=== PATIENT | female | born 1985 | race Caucasian/White ===

== ENCOUNTER 2019-03-07 16:40 | Inpatient (IN) ==
[2019-03-07] MEDS ORDERED: CALCIUM GLUCONATE 1,000 MG in SODIUM CHLORIDE 0.9% 100 ML IV PRN (17:22)
[2019-03-07 17:45] LABS: Basophils % 0.2 % (0.0-0.8); Eosinophils # 0.1 10*3/uL (0.0-0.87); Hematocrit 30.6 VOL% (35.7-47.0); Hemoglobin 10.2 GM/DL (12.0-16.0); Immature Granulocytes % 0.9 %; Immature Granulocytes Absolute 0.11 #; Lymphocytes # 2.3 10*3/uL (1.4-4.0); Lymphocytes % 18.3 % (21.3-54.2); Mean Corpuscular HGB Conc 33.3 GM/DL (32-36); Mean Corpuscular Volume 85.7 FL (87-102); Mean Platelet Volume 11.2 FL (9.6-12.0); Neutrophils % 73.6 % (38.7-73.9); Platelet Count 193 T/CUMM (130-400); Red Blood Count 3.57 MC/CUMM (3.8-5.5); Red Cell Distribution Width 14.9 % (9.3-17.3); White Blood Count 12.6 T/CUMM (4-12)
[2019-03-07] MEDS ORDERED: MAGNESIUM SULF RIDER 100 ML IV ONE (17:56)
[2019-03-07 18:06] LABS: Albumin 2.5 G/DL (3.4-5.0); Bilirubin,Total 0.4 MG/DL (0.2-1.0); Calcium 8.8 MG/DL (8.5-10.1); Osmolality,Calculated 275.5 MOS/KG (273-304); Total Protein 6.7 G/DL (6.4-8.3)
[2019-03-07] MEDS: LACTATED RINGERS 1,000 ML IV SCH (18:25)
[2019-03-07] MEDS: BETAMETH SODIUM PHOS/ACETATE 30 MG/5 ML VIAL IM SCH (18:30)
[2019-03-07] MEDS: AMPICILLIN INJ 2,000 MG in SODIUM CHLORIDE 0.9% 100 ML IV SCH (18:30)
[2019-03-07] MEDS: MAGNESIUM SULF DRIP 40 GM/1,000 ML ML IV SCH (18:47)
[2019-03-08] MEDS: AMPICILLIN INJ 2,000 MG in SODIUM CHLORIDE 0.9% 100 ML IV SCH ×4 (00:03→18:58)
[2019-03-08 06:14] LABS: Basophils # 0.1 10*3/uL (0.0-0.2); Basophils % 0.3 % (0.0-0.8); Eosinophils % 0.1 % (0.00-10.9); Hematocrit 34.3 VOL% (35.7-47.0); Hemoglobin 11.3 GM/DL (12.0-16.0); Immature Granulocytes % 1.2 %; Immature Granulocytes Absolute 0.22 #; Lymphocytes # 1.7 10*3/uL (1.4-4.0); Lymphocytes % 9.5 % (21.3-54.2); Mean Corpuscular HGB Conc 32.9 GM/DL (32-36); Mean Corpuscular Volume 86.4 FL (87-102); Mean Platelet Volume 10.8 FL (9.6-12.0); Monocytes % 2.8 % (1.7-12.7); Neutrophils % 86.1 % (38.7-73.9); Platelet Count 223 T/CUMM (130-400); Red Blood Count 3.97 MC/CUMM (3.8-5.5); Red Cell Distribution Width 14.7 % (9.3-17.3); White Blood Count 17.6 T/CUMM (4-12)
[2019-03-08] MEDS: LACTATED RINGERS 1,000 ML IV SCH ×2 (07:20→21:54)
[2019-03-08] MEDS: MAGNESIUM SULF DRIP 40 GM/1,000 ML ML IV SCH (15:22)
[2019-03-08] MEDS: BETAMETH SODIUM PHOS/ACETATE 30 MG/5 ML VIAL IM SCH (18:47)
[2019-03-09] MEDS ORDERED: AMPICILLIN 2,000 MG VIAL ONE (02:22)
[2019-03-09] MEDS ORDERED: SODIUM CHLORIDE 0.9% 100 ML IV ONE (02:23)
[2019-03-09] MEDS: AMPICILLIN INJ 2,000 MG in SODIUM CHLORIDE 0.9% 100 ML IV SCH ×4 (02:28→20:14)
[2019-03-09] MEDS: MAGNESIUM SULF DRIP 40 GM/1,000 ML ML IV SCH (11:29)
[2019-03-09] MEDS: LACTATED RINGERS 1,000 ML IV SCH (16:46)
[2019-03-10] MEDS: AMPICILLIN INJ 2,000 MG in SODIUM CHLORIDE 0.9% 100 ML IV SCH ×3 (02:01→16:24)
[2019-03-10] MEDS: MAGNESIUM SULF DRIP 40 GM/1,000 ML ML IV SCH (07:05)
[2019-03-10] MEDS: LACTATED RINGERS 1,000 ML IV SCH (13:49)
[2019-03-11] MEDS ORDERED: DIPHENOXYLATE/ATROPINE 2.5-0.025 MG TABLET PO ONE (00:29)
[2019-03-11] MEDS: AMPICILLIN INJ 2,000 MG in SODIUM CHLORIDE 0.9% 100 ML IV SCH ×4 (02:26→16:14)
[2019-03-11] MEDS ORDERED: ACETAMINOPHEN 500 MG TABLET PO ONE (02:34)
[2019-03-11] MEDS ORDERED: ONDANSETRON 4 MG/2 ML VIAL ONE (03:18)
[2019-03-11] MEDS ORDERED: BUTORPHANOL 2 MG/ML VIAL ONE (03:18)
[2019-03-11] MEDS ORDERED: ONDANSETRON 4 MG/2 ML VIAL IV PRN ×2 (03:20→20:28)
[2019-03-11] MEDS: BUTORPHANOL 2 MG/ML VIAL IV PRN ×3 (03:25→14:44)
[2019-03-11] MEDS: MAGNESIUM SULF DRIP 40 GM/1,000 ML ML IV SCH (03:45)
[2019-03-11 04:17] LABS: Basophils % 0.3 % (0.0-0.8); Eosinophils # 0.1 10*3/uL (0.0-0.87); Eosinophils % 0.4 % (0.00-10.9); Hematocrit 30.2 VOL% (35.7-47.0); Hemoglobin 9.9 GM/DL (12.0-16.0); Immature Granulocytes % 1.4 %; Immature Granulocytes Absolute 0.19 #; Lymphocytes # 2.7 10*3/uL (1.4-4.0); Lymphocytes % 20.8 % (21.3-54.2); Mean Corpuscular HGB Conc 32.8 GM/DL (32-36); Mean Corpuscular Volume 87.3 FL (87-102); Mean Platelet Volume 10.6 FL (9.6-12.0); Monocytes % 7.9 % (1.7-12.7); Neutrophils % 69.2 % (38.7-73.9); Platelet Count 184 T/CUMM (130-400); Red Blood Count 3.46 MC/CUMM (3.8-5.5); Red Cell Distribution Width 14.8 % (9.3-17.3); White Blood Count 13.1 T/CUMM (4-12)
[2019-03-11] MEDS: LACTATED RINGERS 1,000 ML IV SCH (09:19)
[2019-03-11] MEDS ORDERED: BUTORPHANOL 2 MG/ML VIAL IV ONE (17:52)
[2019-03-11] MEDS ORDERED: CITRIC ACID/SODIUM CITRATE 30 ML UDCUP PO ONE (17:54)
[2019-03-11] MEDS ORDERED: LACTATED RINGERS 1,000 ML IV ONE (17:54)
[2019-03-11] MEDS ORDERED: FAMOTIDINE 20 MG/2 ML VIAL IV ONE (17:54)
[2019-03-11] MEDS ORDERED: ePHEDrine 50 MG/ML AMP IV PRN (17:54)
[2019-03-11] MEDS ORDERED: PROMETHAZINE 25 MG/1 ML VIAL IM ONE (17:55)
[2019-03-11] MEDS ORDERED: LACTATED RINGERS 250 ML IV PRN (17:55)
[2019-03-11] MEDS ORDERED: hydrOXYzine HCL 25 MG/1 ML VIAL IM PRN (17:55)
[2019-03-11] MEDS ORDERED: NALOXONE 0.4 MG/ML VIAL IV PRN (17:55)
[2019-03-11] MEDS ORDERED: diphenhydrAMINE 50 MG/1 ML VIAL IV PRN ×2 (17:55)
[2019-03-11] MEDS ORDERED: fentaNYL 2 MCG/ROPIV 0.2% EPID 100 ML EPIDURAL SCH (18:00)
[2019-03-11] MEDS ORDERED: TRANEXAMIC ACID 1,000 MG/10 ML VIAL ONE (19:54)
[2019-03-11] MEDS ORDERED: miSOPROStol 200 MCG TABLET ONE (19:54)
[2019-03-11] MEDS ORDERED: OXYTOCIN/LR 20 UNIT/1,000 ML BAG IV ONE ×2 (19:54→20:28)
[2019-03-11] MEDS ORDERED: CARBOPROST TROMETHAMINE 250 MCG/ML AMP IM ONE (19:54)
[2019-03-11] MEDS ORDERED: METHYLERGONOVINE 0.2 MG/1 ML AMP ONE (19:54)
[2019-03-11] MEDS ORDERED: oxyCODONE/ACETAMINOPHEN 5-325 MG TABLET PO PRN ×2 (20:28)
[2019-03-11] MEDS ORDERED: HYDROCORTISONE 2.5% RECTAL CREAM 30 GM TUBE TOP PRN (20:28)
[2019-03-11] MEDS ORDERED: MEASLES/MUMPS/RUBELLA VACCINE 0.5 ML VIAL SUBCUT ONE (20:28)
[2019-03-11] MEDS ORDERED: LANOLIN 50% CREAM 0.3 OZ TUBE TOP PRN (20:28)
[2019-03-11] MEDS ORDERED: BENZOCAINE 20%/MENTHOL 0.5% SPRAY 56 GM CAN TOP PRN (20:28)
[2019-03-11] MEDS ORDERED: IBUPROFEN 800 MG TABLET PO PRN (20:28)
[2019-03-11] MEDS ORDERED: WITCH HAZEL PADS 100/JAR TOP PRN (20:28)
[2019-03-11] MEDS ORDERED: DIPH/TET/ACEL PERT BOOSTER VACCINE 0.5 ML VIAL IM ONE (20:28)
[2019-03-11] MEDS ORDERED: ACETAMINOPHEN 325 MG TABLET PO PRN (20:28)
[2019-03-11] MEDS ORDERED: BISACODYL 10 MG SUPP RECTAL PRN (20:28)
[2019-03-11] MEDS ORDERED: RHO(D) IMMUNE GLOBULIN 300 MCG SYRINGE IM ONE (20:28)
[2019-03-11] MEDS: CLINDAMYCIN INJ 900 MG in PREMIX 1 EACH IV SCH (21:50)
[2019-03-12] MEDS: AMPICILLIN INJ 2,000 MG in SODIUM CHLORIDE 0.9% 100 ML IV SCH ×4 (00:19→17:10)
[2019-03-12] MEDS: GENTAMICIN IV SCH (01:18)
[2019-03-12] MEDS: SODIUM CHLORIDE 0.9% IV SCH (01:18)
[2019-03-12 04:11] LABS: Basophils # 0.1 10*3/uL (0.0-0.2); Basophils % 0.4 % (0.0-0.8); Eosinophils # 0.1 10*3/uL (0.0-0.87); Eosinophils % 0.5 % (0.00-10.9); Hematocrit 29.2 VOL% (35.7-47.0); Hemoglobin 9.4 GM/DL (12.0-16.0); Immature Granulocytes % 0.7 %; Immature Granulocytes Absolute 0.09 #; Lymphocytes # 2.4 10*3/uL (1.4-4.0); Lymphocytes % 18.8 % (21.3-54.2); Mean Corpuscular HGB Conc 32.2 GM/DL (32-36); Mean Corpuscular Volume 87.4 FL (87-102); Mean Platelet Volume 10.8 FL (9.6-12.0); Monocytes % 8.7 % (1.7-12.7); Neutrophils % 70.9 % (38.7-73.9); Platelet Count 184 T/CUMM (130-400); Red Blood Count 3.34 MC/CUMM (3.8-5.5); Red Cell Distribution Width 14.6 % (9.3-17.3); White Blood Count 12.5 T/CUMM (4-12)
[2019-03-12] MEDS: CLINDAMYCIN INJ 900 MG in PREMIX 1 EACH IV SCH ×3 (05:04→20:55)
[2019-03-12] MEDS: DOCUSATE SODIUM 100 MG CAPSULE PO SCH ×2 (09:09→20:56)
[2019-03-13] MEDS: AMPICILLIN INJ 2,000 MG in SODIUM CHLORIDE 0.9% 100 ML IV SCH ×2 (00:22→05:32)
[2019-03-13] MEDS: SODIUM CHLORIDE 0.9% IV SCH (00:58)
[2019-03-13] MEDS: GENTAMICIN IV SCH (00:58)
[2019-03-13 04:39] VITALS: BP 122/69
[2019-03-13] MEDS: CLINDAMYCIN INJ 900 MG in PREMIX 1 EACH IV SCH (05:07)
[2019-03-13 05:20] LABS: Basophils # 0.1 10*3/uL (0.0-0.2); Basophils % 0.6 % (0.0-0.8); Eosinophils # 0.2 10*3/uL (0.0-0.87); Hematocrit 29.2 VOL% (35.7-47.0); Hemoglobin 9.2 GM/DL (12.0-16.0); Lymphocytes % 28.9 % (21.3-54.2); Mean Corpuscular HGB Conc 31.5 GM/DL (32-36); Mean Platelet Volume 10.6 FL (9.6-12.0); Monocytes % 7.3 % (1.7-12.7); Neutrophils % 60.2 % (38.7-73.9); Platelet Count 168 T/CUMM (130-400); Red Blood Count 3.32 MC/CUMM (3.8-5.5); Red Cell Distribution Width 14.6 % (9.3-17.3); White Blood Count 10.3 T/CUMM (4-12)
[2019-03-13] MEDS: DOCUSATE SODIUM 100 MG CAPSULE PO SCH (09:44)
== END 2019-03-13 12:15 | disposition home or self-care (01) | DRG 560 ==
LOC: N.LDOUT 16:40 → N.LD 16:43 → N.OB 03-12 00:05
PROVIDERS: ADMIT Specialist; ATTEND Specialist

== ENCOUNTER 2021-11-23 20:50 | Inpatient (IN) ==
[2021-11-23] MEDS ORDERED: MEPERIDINE 50 MG/1 ML VIAL IV PRN ×2 (21:00)
[2021-11-23] MEDS ORDERED: CARBOPROST TROMETHAMINE 250 MCG/ML AMP IM PRN (21:00)
[2021-11-23] MEDS ORDERED: ONDANSETRON 4 MG/2 ML VIAL IV PRN (21:00)
[2021-11-23] MEDS ORDERED: ACETAMINOPHEN 325 MG TABLET PO PRN (21:00)
[2021-11-23] MEDS ORDERED: LACTATED RINGERS 250 ML IV PRN (21:00)
[2021-11-23] MEDS ORDERED: miSOPROStoL 200 MCG TABLET RECTAL PRN (21:00)
[2021-11-23] MEDS ORDERED: LACTATED RINGERS 500 ML IV PRN (21:00)
[2021-11-23] MEDS ORDERED: TRANEXAMIC ACID 1,000 MG in SODIUM CHLORIDE 0.9% 100 ML IV PRN (21:00)
[2021-11-23] MEDS ORDERED: BUTORPHANOL 2 MG/ML VIAL IV PRN (21:00)
[2021-11-23] MEDS ORDERED: OXYTOCIN/LR 20 UNIT/1,000 ML BAG IV ONE (21:00)
[2021-11-23] MEDS ORDERED: METHYLERGONOVINE 0.2 MG/1 ML AMP IM PRN (21:00)
[2021-11-23] MEDS ORDERED: BUTORPHANOL 1 MG/ML VIAL IV PRN (21:00)
[2021-11-23] MEDS: LACTATED RINGERS 1,000 ML IV SCH (21:30)
[2021-11-23 21:38] LABS: Basophils # 0.1 10*3/uL (0.0-0.2); Basophils % 0.5 % (0.0-0.8); Eosinophils # 0.1 10*3/uL (0.0-0.87); Eosinophils % 1.1 % (0.00-10.9); Hematocrit 34.8 VOL% (35.7-47.0); Hemoglobin 11.3 GM/DL (12.0-16.0); Immature Granulocytes Absolute 0.11 #; Lymphocytes # 3.5 10*3/uL (1.4-4.0); Lymphocytes % 32.3 % (21.3-54.2); Mean Corpuscular HGB Conc 32.5 GM/DL (32-36); Mean Corpuscular Volume 88.1 FL (87-102); Mean Platelet Volume 11.1 FL (9.6-12.0); Monocytes % 6.8 % (1.7-12.7); Neutrophils % 58.3 % (38.7-73.9); Platelet Count 265 T/CUMM (130-400); Red Blood Count 3.95 MC/CUMM (3.8-5.5); Red Cell Distribution Width 14.8 % (9.3-17.3); White Blood Count 10.8 T/CUMM (4-12)
[2021-11-23 21:56] LABS: Albumin 2.5 G/DL (3.4-5.0); Bilirubin,Total 0.5 MG/DL (0.20-1.00); Calcium 9.3 MG/DL (8.5-10.1); Osmolality,Calculated 276.7 MOS/KG (273-304); Potassium 3.7 MMOL/L (3.5-5.1); Total Protein 6.6 G/DL (6.4-8.2)
[2021-11-23] MEDS ORDERED: AMPICILLIN INJ 2,000 MG in SODIUM CHLORIDE 0.9% 100 ML IV ONE (22:00)
[2021-11-23] MEDS: amLODIPine 10 MG TABLET PO SCH (22:07)
[2021-11-24] MEDS: AMPICILLIN INJ 1,000 MG in SODIUM CHLORIDE 0.9% 100 ML IV SCH ×2 (02:10→06:23)
[2021-11-24 02:32] LABS: Bilirubin,Urine Negative (Negative); Blood, Urine Trace mg/dL (Negative); Glucose,Urine (UA) Negative (Negative); Ketones,Urine Negative (Negative); Nitrite,Urine Negative (Negative); Protein,Urine Negative (Negative); Urine Appearance Clear (Clear); Urine Color Yellow (Yellow); Urine Specific Gravity >= 1.030 (1.001-1.035)
[2021-11-24 02:37] LABS: Bacteria,Urine Occasional /HPF (Few); Mucus,Urine Occasional /LPF (Occasional); RBC,Urine <1 /HPF (0-4); Squamous Epithelial Cell,Urine Occasional /HPF (0-10)
[2021-11-24] MEDS ORDERED: OXYTOCIN/LR 20 UNIT/1,000 ML BAG IV SCH (06:00)
[2021-11-24] MEDS: LACTATED RINGERS 1,000 ML IV SCH ×3 (06:24→19:02)
[2021-11-24] MEDS ORDERED: BUPIVACAINE SPINAL 0.75% 2 ML AMP SPINAL ONE (10:50)
[2021-11-24] MEDS ORDERED: ONDANSETRON 4 MG/2 ML VIAL ONE (10:50)
[2021-11-24] MEDS ORDERED: buprenorphine HCL 0.3 MG/ML VIAL ONE (10:51)
[2021-11-24] MEDS ORDERED: CITRIC ACID/SODIUM CITRATE 30 ML UDCUP PO ONE (11:00)
[2021-11-24] MEDS ORDERED: ceFAZolin 3,000 MG in SYRINGE 1 EACH IV ONE (11:00)
[2021-11-24] MEDS ORDERED: FAMOTIDINE 20 MG/2 ML VIAL IV ONE (11:00)
[2021-11-24] MEDS: amLODIPine 10 MG TABLET PO SCH (11:10)
[2021-11-24] MEDS ORDERED: KETOROLAC 30 MG/1 ML VIAL ONE (12:37)
[2021-11-24] MEDS ORDERED: PHENYLEPHRINE 1 MG/10 ML SYRINGE IV ONE (12:37)
[2021-11-24 12:42] LABS: Cord Arterial Blood HCO3 21.3 MMOL/L
[2021-11-24 12:45] LABS: Cord Venous Blood HCO3 22.2 MMOL/L; Cord Venous Blood PCO2 58.4 MMHG; Cord Venous Blood PO2 17.1
[2021-11-24 12:48] LABS: Bacteria,Urine Occasional /HPF (Few); Mucus,Urine Occasional /LPF (Occasional); RBC,Urine <1 /HPF (0-4); Squamous Epithelial Cell,Urine Occasional /HPF (0-10)
[2021-11-24 12:49] LABS: Bilirubin,Urine Negative (Negative); Blood, Urine Negative (Negative); Glucose,Urine (UA) Negative (Negative); Ketones,Urine Negative (Negative); Nitrite,Urine Negative (Negative); Protein,Urine Negative (Negative); Urine Appearance Clear (Clear); Urine Color Yellow (Yellow)
[2021-11-24] MEDS: ACETAMINOPHEN 500 MG TABLET PO SCH ×2 (15:31→21:07)
[2021-11-24] MEDS ORDERED: ACETAMINOPHEN 325 MG TABLET PO PRN (15:49)
[2021-11-24] MEDS ORDERED: oxyCODONE/ACETAMINOPHEN 5-325 MG TABLET PO PRN ×2 (15:49)
[2021-11-24] MEDS ORDERED: DIPH/TET/ACEL PERT BOOSTER VACCINE 0.5 ML VIAL IM ONE (15:49)
[2021-11-24] MEDS ORDERED: WITCH HAZEL PADS 100/JAR TOP PRN (15:49)
[2021-11-24] MEDS ORDERED: LANOLIN 50% CREAM 0.3 OZ TUBE TOP PRN (15:49)
[2021-11-24] MEDS ORDERED: BISACODYL 10 MG SUPP RECTAL PRN (15:49)
[2021-11-24] MEDS ORDERED: ONDANSETRON 4 MG/2 ML VIAL IV PRN (15:49)
[2021-11-24] MEDS ORDERED: HYDROCORTISONE 2.5% RECTAL CREAM 30 GM TUBE TOP PRN (15:49)
[2021-11-24] MEDS ORDERED: MEASLES/MUMPS/RUBELLA VACCINE 0.5 ML VIAL SUBCUT ONE (15:49)
[2021-11-24] MEDS ORDERED: RHO(D) IMMUNE GLOBULIN 300 MCG SYRINGE IM ONE (15:49)
[2021-11-24] MEDS ORDERED: BENZOCAINE 20%/MENTHOL 0.5% SPRAY 56 GM CAN TOP PRN (15:49)
[2021-11-24] MEDS ORDERED: OXYTOCIN/LR 20 UNIT/1,000 ML BAG IV ONE (16:30)
[2021-11-24] MEDS: KETOROLAC 30 MG/1 ML VIAL IV SCH ×2 (18:12→23:57)
[2021-11-24] MEDS: ceFAZolin 2,000 MG/50 ML DUPLEX IV SCH (19:04)
[2021-11-24] MEDS ORDERED: ceFAZolin 2,000 MG in SODIUM CHLORIDE 0.9% 100 ML IV SCH (19:30)
[2021-11-24] MEDS ORDERED: amLODIPine 10 MG TABLET PO SCH (22:00)
[2021-11-25] MEDS: DOCUSATE SODIUM 100 MG CAPSULE PO SCH ×3 (00:13→21:27)
[2021-11-25] MEDS: ceFAZolin 2,000 MG/50 ML DUPLEX IV SCH (03:45)
[2021-11-25] MEDS: ACETAMINOPHEN 500 MG TABLET PO SCH ×2 (03:46→11:01)
[2021-11-25 05:16] LABS: Basophils # 0.1 10*3/uL (0.0-0.2); Basophils % 0.7 % (0.0-0.8); Eosinophils # 0.1 10*3/uL (0.0-0.87); Eosinophils % 1.1 % (0.00-10.9); Hematocrit 31.4 VOL% (35.7-47.0); Immature Granulocytes % 0.6 %; Immature Granulocytes Absolute 0.07 #; Lymphocytes # 3.2 10*3/uL (1.4-4.0); Mean Corpuscular HGB Conc 31.8 GM/DL (32-36); Mean Corpuscular Volume 88.5 FL (87-102); Mean Platelet Volume 11.2 FL (9.6-12.0); Monocytes % 9.4 % (1.7-12.7); Neutrophils % 61.2 % (38.7-73.9); Platelet Count 215 T/CUMM (130-400); Red Blood Count 3.55 MC/CUMM (3.8-5.5); Red Cell Distribution Width 14.6 % (9.3-17.3); White Blood Count 11.7 T/CUMM (4-12)
[2021-11-25] MEDS: KETOROLAC 30 MG/1 ML VIAL IV SCH (05:52)
[2021-11-25] MEDS ORDERED: MAGNESIUM HYDROXIDE SUSP 30 ML UDCUP PO PRN (09:07)
[2021-11-25] MEDS: MULTIVITAMIN (PRENATAL) TABLET PO SCH (09:09)
[2021-11-25] MEDS: amLODIPine 10 MG TABLET PO SCH (11:27)
[2021-11-25] MEDS: IBUPROFEN 800 MG TABLET PO PRN (15:11)
[2021-11-26] MEDS: IBUPROFEN 800 MG TABLET PO PRN (03:24)
[2021-11-26] MEDS: amLODIPine 10 MG TABLET PO SCH (09:00)
[2021-11-26] MEDS: DOCUSATE SODIUM 100 MG CAPSULE PO SCH (09:00)
[2021-11-26] MEDS: MULTIVITAMIN (PRENATAL) TABLET PO SCH (09:00)
[2021-11-26] MEDS ORDERED: DIPH/TET/ACEL PERT BOOSTER VACCINE 0.5 ML VIAL IM ONE (12:05)
[2021-11-26 13:56] VITALS: BP 141/77
== END 2021-11-26 13:50 | disposition home or self-care (01) | DRG 540 ==
LOC: N.LDOUT 20:50 → N.LD 20:52 → N.OB 11-24 15:48
PROVIDERS: ADMIT Specialist; ATTEND Specialist
PROC: LDCSECT (ICD-10-PCS; 2021-11-24 12:00)